=== PATIENT | female | born 1985 | race Asian ===

== ENCOUNTER 2019-11-21 12:07 | Observation (INO) ==
[2019-11-21] MEDS ORDERED: LACTATED RINGER'S 1,000 ML IV PRN (12:38)
[2019-11-21] MEDS ORDERED: OXYTOCIN 30 UNITS/500 ML BAG IV PRN ×2 (12:38→12:40)
[2019-11-21 12:58] LABS: Hematocrit (blood only) 33.1 % (37-47); Hemoglobin 11.2 g/dL (12.0-16.0); Mean Corpuscular Volume 85.8 fL (80-100); Mean Platelet Volume 9.3 fL (7.4-10.4); Platelet Count 164 K/uL (130-400); RDW Coefficient of Variation 14.7 % (11.5-14.5); RDW Standard Deviation 45.7 fL (36.4-46.3); Red Blood Count 3.86 M/uL (4.2-5.4); White Blood Count 8.23 K/uL (4.8-10.8)
[2019-11-21 13:02] LABS: Mean Corpuscular Hgb Conc 33.8 g/dL (32-36)
[2019-11-21 13:25] LABS: Alanine Aminotransferase 10 U/L (12-78); Albumin Level 2.8 gm/dl (3.4-5.0); Aspartate Aminotransferase 12 U/L (15-37); BUN Creatinine Ratio 18.8 (10-20); Blood Urea Nitrogen 10 mg/dl (7-18); Calcium 9.1 mg/dl (8.5-10.1); Carbon Dioxide 19 mmol/L (21-32); Chloride 109 mmol/L (98-107); Est GFR (African American) 142.5; Est GFR (Non-African American) 122.9; Glucose 78 mg/dl (70-99); Potassium 3.9 mmol/L (3.5-5.1); Sodium 137 mmol/L (136-145)
--- NOTE | 2019-11-21 13:25 | History & Physical Report ---
Date of Service November 21, 2019 Assessment & Plan (1) Post-term , 40-42 weeks of gestation: Patient is a 34-year-old -0-0-2 female, advanced maternal age, diet- controlled gestational diabetes, hypothyroidism during . Vital signs stable afebrile heart rate reassuring GBS negative Discussed option of induction of labor with either cervical ripening with prostaglandins or oxytocin infusion with low-dose protocol and artificial rupture of membranes. Patient has a lot of questions about injections, medications and safety of using them and safety of induction of labor. She is asking whether this is forcing the baby out and not healthy for the baby. Discussed with the patient that medications sedated extensively and has been used for many years and will lower the world. Patient herself and the baby will be monitored continuously for any possible side effects or complications. She is asking to wait longer until 41 weeks. We discussed that that could be an option, and there is a risk of placental insufficiency, meconium passage with meconium syndrome, cord accidents and intrauterine demise. I recommended induction of labor today since baby is full-term and there is no benefit from waiting. All questions were answered. Patient wanted to discuss with her and then decide together. (2) Gestational diabetes mellitus (GDM): (3) Hypothyroid in , antepartum: Admission and Anticipated Discharge Date Admission Date: November 21, 2019 History of Present Illness Primary Care Provider: NO PCP Patient is a 34-year-old -0-0-2 female at 40 weeks and 3 days of gestation with EDC of 11/17, confirmed with first trimester ultrasound. She was scheduled for induction of labor at term for with GDM A1 Her has been complicated by 1) Advanced maternal age. Has been seen by MFM. 2) gestational diabetes, diet controlled. 3) hypothyroidism, on Synthroid. She has no complaints today. She denies contractions, leakage of fluids, vaginal bleeding, fever chills, nausea and vomiting, chest pain and shortness of breath. She reports good movements. GBS is negative. Coronavirus testing was negative on November 04. Allergies Allergy/AdvReac Type Severity Reaction Status Date / Time No Known Allergies Allergy Unverified 11/21/19 12:23 Home Medications Home Medications Medication Instructions Recorded Confirmed Type ferrous sulfate [Iron (ferrous 325 mg PO DAILY 11/21/19 11/21/19 History sulfate)] levothyroxine 50 mcg PO DAILY 11/21/19 11/21/19 History prenat.vits,nitish,[id number]-[id number] 1 tab PO DAILY 11/21/19 11/21/19 History [ Vitamin] Patient History Medical History Adult hypothyroidism (~02/01/12) Advanced maternal age (AMA) in Gestational diabetes (~09/03/19) Family History Mother Lung cancer Mother Hypertension Social History Preferred Language: Wolof Communication Ability: Effective Healthcare Consultant Required: No Beliefs That Will Affect Care: Ep[employer] and Cultural Cultural Beliefs: pt. 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 Gastrointestinal (Abdomen): normal bowel sounds, soft, nontender, no hepatosplenomegaly (Gravid, [place] 8pounds.) Musculoskeletal: Lower extremities are nontender no edema Genitourinary: normal external appearance Manual OB Exam: + cervical dilation 2 cm, + cervical effacement 10% and + station (-5) high OB Exam Monitor Tracing: + category I Bedside ultrasound is done by myself. Vertex presentation. Placenta anterior. Estimated weight is 3660 g. Amniotic fluid volume is normal. Results & Data ([facility]) Vital Signs (Past 12 Hours) Vital Signs Temp Pulse Resp BP 11/21/19 12:17 36.9 C 77 16 103/61
[2019-11-21 13:27] LABS: Albumin Globulin Ratio 0.8 (0.9-2); Alkaline Phosphatase 133 U/L (45-117); Bilirubin,Total 1.2 mg/dl (0.2-1); Globulin 3.5 gm/dl (2.5-4.0); Total Protein 6.3 gm/dl (6.4-8.2)
[2019-11-21] MEDS ORDERED: FLUCONAZOLE 50 MG TAB PO ONE (13:48)
--- NOTE | 2019-11-21 13:51 | Obstetrical Progress Note ---
Date of Service November 21, 2019 Assessment & Plan Admission and Anticipated Discharge Date Admission Date: November 21, 2019 Subjective After discussion with her they decided to go home and come back on Friday 11/24 for IOL if she would be . She is hoping to go into labor by herself Discussed when to call Recommended NST on 11/22 She agreed All questions were answered Results & Data ([facility]) Vital Signs (Past 12 Hours) Vital Signs Temp Pulse Resp BP 11/21/19 12:17 36.9 C 77 16 103/61
== END 2019-11-21 14:25 | disposition home or self-care (01) | DRG 833 ==
LOC: INTOOBSV 12:07 → 4S1 12:07

== ENCOUNTER 2021-01-06 20:32 | Inpatient (IN) ==
[2021-01-06] MEDS ORDERED: LACTATED RINGER'S 1,000 ML IV PRN (20:41)
[2021-01-06] MEDS ORDERED: OXYTOCIN 30 UNITS/500 ML BAG IV PRN (20:41)
[2021-01-06 20:59] LABS: Hematocrit (blood only) 35.7 % (37-47); Hemoglobin 11.9 g/dL (12.0-16.0); Mean Corpuscular Hgb Conc 33.3 g/dL (32-36); Mean Corpuscular Volume 87.1 fL (80-100); Mean Platelet Volume 8.9 fL (7.4-10.4); Platelet Count 162 K/uL (130-400); RDW Coefficient of Variation 15.1 % (11.5-14.5); RDW Standard Deviation 47.7 fL (36.4-46.3); White Blood Count 12.34 K/uL (4.8-10.8)
--- NOTE | 2021-01-06 21:01 | History & Physical Report ---
Date of Service January 06, 2021 Assessment & Plan (1) Post-term , 40-42 weeks of gestation: Plan: delivery anticipated History of Present Illness Chief Complaint: term in labor Primary Care Provider: NO PCP 35 F [id number] at 40+ weeks admitted in active labor fully dilated and membranes bulging. GBS is negative. Covid is pending Allergies Allergy/AdvReac Type Severity Reaction Status Date / Time No Known Allergies Allergy Verified 11/22/19 09:13 Home Medications Medication Instructions Recorded Confirmed Type ferrous sulfate 325 mg (65 mg 325 mg PO DAILY 11/21/19 01/06/21 History iron) tablet (Iron (ferrous sulfate)) levothyroxine 50 mcg tablet 50 mcg PO DAILY 11/21/19 01/06/21 History prenat.vits,nitish,iif-iful-pcgok 1 tab PO DAILY 11/21/19 01/06/21 History Patient History Medical History Adult hypothyroidism (~02/01/12) Advanced maternal age (AMA) in Gestational diabetes (~09/03/19) Family History Mother Lung cancer Mother Hypertension Social History Smoking Status: Never smoker Second Hand Exposure: No; Hx Alcohol Use: No Hx Substance Use: No Preferred Language: Malay Communication Ability: Effective Prefitter Required: No Beliefs That Will Affect Care: Church and Cultural Cultural Beliefs: pt. 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
[2021-01-06] MEDS ORDERED: ePHEDrine sulfate 50 MG/ML AMP IV PRN ×2 (21:37→22:12)
[2021-01-06] MEDS ORDERED: ATROPINE SULFATE 0.1 MG/ML 10ML SYR IV PRN (21:37)
[2021-01-06] MEDS ORDERED: SODIUM CHLORIDE 0.9% INJ 10 ML VIAL ONE (21:44)
[2021-01-06] MEDS ORDERED: ePHEDrine sulfate 50 MG/ML AMP ONE (21:44)
[2021-01-06] MEDS ORDERED: BUPIVACAINE 0.25% 30 ML VIAL ONE (21:44)
[2021-01-06] MEDS ORDERED: fentaNYL citrate 100 MCG/2 ML VIAL ONE (21:45)
[2021-01-06] MEDS ORDERED: fentaNYL 2MCG/ML ROPIVACAINE 1.25MG/ML 100 ML BAG EPI ONE (21:45)
[2021-01-06] MEDS ORDERED: NALBUPHINE HCL INJ 10 MG/ML AMP IV PRN (22:12)
[2021-01-06] MEDS ORDERED: ONDANSETRON INJ 2 MG/ML 2 ML VIAL IV PRN (22:12)
[2021-01-06] MEDS ORDERED: fentaNYL 2MCG/ML ROPIVACAINE 1.25MG/ML 100 ML BAG EPI PRN (22:12)
[2021-01-06] MEDS ORDERED: NALOXONE HCL 0.4 MG/1 ML VIAL/CARP IV PRN (22:12)
[2021-01-06] MEDS ORDERED: diphenhydrAMINE 50 MG/ML VIAL IV PRN (22:12)
[2021-01-06] MEDS ORDERED: NALOXONE HCL 1 MG in SODIUM CHLORIDE 0.9% 1000ML 1,000 ML IV PRN (22:12)
--- NOTE | 2021-01-06 22:13 | Anesthesiology Consultation ---
Date of Service January 06, 2021 Assessment & Plan ASA ASA3 Proposed Anesthesia Anesthesia Type: Labor Epidural Risk / Benefits Reviewed With: PT / POA / Parent / Guardian, Accepts Plan and Informed Consent Obtained History Height/Weight Height: 5 ft 3 in Weight: 80.286 kg Allergies Allergy/AdvReac Type Severity Reaction Status Date / Time No Known Allergies Allergy Verified 11/22/19 09:13 Medications Home Medications Medication Instructions Recorded Confirmed Last Taken ferrous sulfate 325 mg (65 mg 325 mg PO DAILY 11/21/19 01/06/21 01/06/21 08:00 iron) tablet (Iron (ferrous sulfate)) levothyroxine 50 mcg tablet 50 mcg PO DAILY 11/21/19 01/06/21 01/06/21 07:00 prenat.vits,nitish,qds-leoj-xooee 1 tab PO DAILY 11/21/19 01/06/21 01/06/21 08:00 Active Medications Generic Name Dose Route Start Last Admin Trade Name Freq PRN Reason Stop Dose Admin Lactated Ringer's 1,000 mls @ 125 mls/hr 01/06/21 20:41 01/06/21 20:46 Lr IV 01/08/21 20:40 999 mls/hr .Q8H PRN Administration L&D Protocol Protocol Past Medical History Medical History Adult hypothyroidism (~02/01/12) Advanced maternal age (AMA) in Gestational diabetes (~09/03/19) Exercise / Class Metabolic Activity II 4-5 Yardwork/Stairs/Walk up hill Past Family History Family History Mother Lung cancer Mother Hypertension Past Anesthesia History No Hx of Anesthesia Complications and No Family Hx of Anesthesia Complications History of PONV No Hx of PONV and No Hx of Motion Sickness Social History Smoking Status: Never smoker Hx Alcohol Use: No Hx Substance Use: No substance use type: does not use Review of Systems denies fever/cough/ colds/ chest pain/ SOB/ JOHAN denies JOHAN Physical Exam Vital Signs Last Vital Signs Temp 37.1 C 01/06/21 20:48 Pulse 83 01/06/21 22:12 Resp 22 01/06/21 20:48 BP 112/57 L 01/06/21 22:12 Pulse Ox 98 01/06/21 22:08 ENMT Mouth: no TMJ abnormality and no dentition abnormality Thyromental Distance: > or= 3.5 Finger Breadths Mallampati Class: II Neck neck extension not limited Respiratory normal respiratory effort; no respiratory distress Auscultation: lungs clear to auscultation bilaterally Cardiovascular Rate/Rhythm: regular rate and regular rhythm Neurologic moves all extremities Psychiatric Orientation: alert and oriented x 3 Testing Laboratory Results 01/06/21 20:51
[2021-01-07] MEDS: OXYTOCIN 30 UNITS/500ML NSS ONE ×2 (00:03→01:02)
--- NOTE | 2021-01-07 00:18 | Delivery Summary ---
Vaginal Delivery Summary Date of Service January 07, 2021 Vaginal Delivery Summary Delivery Note live male HERBERTH with delayed cord clamping and Apgars 8/9 weight pending. Cord blood obtained followed by spontaneous delivery of intact placenta. Cord noted to be short and placenta appeared to have small abruption so sent to pathology. No tears. EBL 150 ml. Final sponge and instrument count are correct. Mom and baby stable.
[2021-01-07] MEDS ORDERED: BENZOCAINE 20% AER SPR 82.5 GM CAN EXT PRN (00:32)
[2021-01-07] MEDS ORDERED: HYDROCORTISONE ACETATE 25 MG SUPP PR PRN (00:32)
[2021-01-07] MEDS ORDERED: ACETAMINOPHEN 325 MG TAB PO PRN (00:32)
[2021-01-07] MEDS ORDERED: SUPERCREAM 0.870% 15 GM JAR EXT PRN (00:32)
[2021-01-07] MEDS ORDERED: DIPHTHERIA/TETANUS/PERTUSSIS 0.5 ML SYR/VIAL IM ONE (00:32)
[2021-01-07] MEDS ORDERED: OXYTOCIN 30 UNITS/500 ML BAG IV PRN (00:32)
[2021-01-07] MEDS ORDERED: bisacodyL 10 MG SUPP PR PRN (00:32)
[2021-01-07] MEDS ORDERED: CALCIUM CARBONATE 500 MG CHEWABLE TAB PO ONE (02:17)
[2021-01-07] MEDS ORDERED: CALCIUM CARBONATE 500 MG CHEWABLE TAB ONE (02:27)
[2021-01-07] MEDS: IBUPROFEN 600 MG TAB PO PRN ×5 (02:57→21:18)
[2021-01-07] MEDS: LEVOTHYROXINE SODIUM 50 MCG TABLET PO SCH (06:21)
[2021-01-07] MEDS: FERROUS SULFATE 325 MG TAB PO SCH (07:19)
[2021-01-07] MEDS: PRENATAL VITAMIN 1 TAB PO SCH (07:19)
[2021-01-07] MEDS: DOCUSATE SODIUM 100 MG CAP PO SCH ×2 (07:19→21:18)
--- NOTE | 2021-01-07 07:36 | Anesthesia Procedure Note ---
Date of Service January 07, 2021 Anesthesia Post Epidural Note Vital Signs Vital Signs: Temp Pulse Resp BP Pulse Ox 36.9 C 92 H 20 129/72 98 01/07/21 03:00 01/07/21 03:00 01/07/21 03:00 01/07/21 03:00 01/07/21 03:00 Pain Intensity Abdomen: Pain Intensity: 5 Notes Mental Status: alert / awake / arousable and participated in evaluation Nausea / Vomiting: adequately controlled Pain: adequately controlled Airway Patency, RR, SpO2: stable & adequate BP & HR: stable & adequate Hydration State: stable & adequate Neuraxial Anesthesia: was administered and sensory block is resolving Anesthetic Complications: no major complications apparent and Pt Satisfied with anesthetic care Epidural: Removed without complications and With tip intact Notes: Epidural site clean, dry and intact. No signs of edema, erythema or bruising at insertion site. Pt instructed to request anesthesia if she has residual lower extremity numbness or if she develops lower extremity pain or weakness, back pain or headache.
--- NOTE | 2021-01-07 07:38 | History & Physical Bridge Note ---
Date of Service January 07, 2021 History & Physical Bridge Note I have examined the patient, reviewed the History & Physical and in the interval since the performance of the History & Physical I have noted the following changes of clinical significance: no changes noted
[2021-01-07] MEDS ORDERED: CALCIUM CARBONATE 500 MG CHEWABLE TAB PO PRN (07:46)
[2021-01-07] MEDS ORDERED: NON-FORMULARY MEDICATION (Ferrous Sulfate [Iron (Ferrous Sulfate)] 325 mg (65 mg iron) Tab PO SCH (09:00)
[2021-01-07] MEDS ORDERED: NON-FORMULARY MEDICATION (Prenat.Vits,Cal,Min-Iron-Folic Tablet) PO SCH (09:00)
[2021-01-08] MEDS: LEVOTHYROXINE SODIUM 50 MCG TABLET PO SCH (06:29)
[2021-01-08] MEDS: FERROUS SULFATE 325 MG TAB PO SCH (08:00)
[2021-01-08] MEDS: IBUPROFEN 600 MG TAB PO PRN (08:00)
[2021-01-08] MEDS: PRENATAL VITAMIN 1 TAB PO SCH (08:00)
[2021-01-08] MEDS: DOCUSATE SODIUM 100 MG CAP PO SCH (08:00)
[2021-01-08 08:10] LABS: Hematocrit (blood only) 27.7 % (37-47); Hemoglobin 9.2 g/dL (12.0-16.0); Mean Corpuscular Hemoglobin 29.4 pg (25-34); Mean Corpuscular Hgb Conc 33.2 g/dL (32-36); Mean Corpuscular Volume 88.5 fL (80-100); Mean Platelet Volume 9.3 fL (7.4-10.4); Platelet Count 166 K/uL (130-400); RDW Coefficient of Variation 15.5 % (11.5-14.5); RDW Standard Deviation 49.3 fL (36.4-46.3); Red Blood Count 3.13 M/uL (4.2-5.4)
--- NOTE | 2021-01-08 10:26 | Obstetrical Progress Note ---
Date of Service January 08, 2021 Assessment & Plan Admission and Anticipated Discharge Date Admission Date: January 06, 2021 Subjective Patient is seen and examined. She feels well, no complaints. Desires d/c home Ambulating without dizziness Voiding without difficulty Tolerating regular diet with out N&V Bleeding is minimal No fever/ chills/ CP/ SOB/ N&V/ Leg pain Breast and bottle feeding without problems Vital Signs Temp Pulse Resp BP Pulse Ox 01/08/21 08:00 37 C 70 16 105/66 100 01/07/21 23:50 36.6 C 73 16 121/71 98 Lab Results 01/06/21 01/06/21 01/06/21 Range/Units 20:45 20:45 20:51 WBC 12.34 H (4.8-10.8) K/uL RBC 4.10 L (4.2-5.4) M/uL Hgb 11.9 L (12.0-16.0) g/dL Hct 35.7 L (37-47) % MCV 87.1 (80-100) fL MCH 29.0 (25-34) pg MCHC 33.3 (32-36) g/dL RDW Std Deviation 47.7 H (36.4-46.3) fL RDW Coeff of Jonathan 15.1 H (11.5-14.5) % Plt Count 162 (130-400) K/uL MPV 8.9 (7.4-10.4) fL COVID-19 Eval [facility] SARS-CoV-2, RNA, NAAT NEGATIVE (NEGATIVE) 01/08/21 Range/Units 06:45 WBC 14.40 H (4.8-10.8) K/uL RBC 3.13 L (4.2-5.4) M/uL Hgb 9.2 L (12.0-16.0) g/dL Hct 27.7 L (37-47) % MCV 88.5 (80-100) fL MCH 29.4 (25-34) pg MCHC 33.2 (32-36) g/dL RDW Std Deviation 49.3 H (36.4-46.3) fL RDW Coeff of Jonathan 15.5 H (11.5-14.5) % Plt Count 166 (130-400) K/uL MPV 9.3 (7.4-10.4) fL COVID-19 Eval Order SARS-CoV-2, RNA, NAAT (NEGATIVE) PE: General: Alert, orientedx3, NAD Abd: soft, NT, fundus firm, below Umbilicus Perineum intact, Lochia rubra minimal Ext; NT, no edema AP: 35 yo s/p , ppd# 1 VSS Afebrile doing well Continue routine care All questions were answered Discussed when to call D/C home f/u in office Results & Data ([facility]) Vital Signs (Past 12 Hours) Vital Signs Temp Pulse Resp BP Pulse Ox 01/08/21 08:00 37 C 70 16 105/66 100 01/07/21 23:50 36.6 C 73 16 121/71 98
[2021-01-08] MEDS ORDERED: bisacodyL 5 MG TABEC PO SCH (20:00)
== END 2021-01-08 12:05 | disposition home or self-care (01) | DRG 807 ==
LOC: OPB 20:32 → 4S1 20:33 → 4S2 01-07 02:42